=== PATIENT | male | born 1975 | race African-American/Black ===

== ENCOUNTER 2024-06-11 19:43 | Emergency (ER) | payer SELFPAY ==
[2024-06-11 22:50] LABS: Specific Gravity > 1.030 (1.005-1.030); Sqamous Epithelial None Seen /HPF (None Seen); Urine Bacteria <20 /HPF (<20); Urine Bilirubin NEGATIVE (Negative); Urine Blood 3+ (OVER) (Negative); Urine Clarity Extremely Turbid (Clear); Urine Color Dark-Brown (Yellow); Urine Culture Reflex Order NOT NEEDED; Urine Glucose NEGATIVE (Negative); Urine Ketones NEGATIVE (Negative); Urine Micro Reflex YN NO BILL MICROSCOPIC; Urine Mucus 4+ /HPF (None Seen); Urine Nitrite NEGATIVE (Negative); Urine Protein 2+ (Negative); Urine RBC >50 /HPF (None Seen); Urine Urobilinogen Normal (Normal); Urine WBC None Seen /HPF (<5); Urine pH 5.5 (5.0-7.0)
[2024-06-12 00:29] LABS: Absolute Eosinophils 0.1 K/uL (0-0.5); Absolute Monocytes 0.5 K/uL (0.1-1.3); Absolute Neutrophil 2.8 K/uL (1.8-8.0); Basophils % 0.6 % (0-1.3); Eosinophils % 2.6 % (0-4.4); Hematocrit 44.3 % (39.6-49.0); Hemoglobin 14.8 g/dL (13.6-17.9); Lymphocytes % 36.1 % (15.3-44.8); MCH 32.5 pg (27.0-35.0); MCHC 33.4 g/dL (32.0-36.0); MCV 97.2 fL (80-100); MPV 8.8 fL (7.6-11.3); Monocytes % 9.6 % (3.3-12.3); Neutrophils % 51.1 % (41.7-73.7); Nucleated Red Blood Cells % 0.1 % (0-0); Platelets 152 thou/uL (152-406); RBC Red Blood Cell Count 4.56 M/uL (4.33-5.43); Red Cell Distribution Width 13.1 % (12.1-15.2)
[2024-06-12 00:31] LABS: Albumin 3.8 g/dL (3.4-5.0); Anion Gap 5.3 mEq/L (5.0-15.0); Bilirubin Total 0.6 mg/dL (0.2-1.0); Potassium 4.3 mEq/L (3.5-5.1); Protein, Total 7.8 g/dL (6.4-8.2)
[2024-06-12 00:36] LABS: PT Prothrombin Time 11.7 SECONDS (9.4-12.5); PTT, Activated Partial Thromb 31.9 SECONDS (24.3-36.9); Protime INR 1.05
[2024-06-12] MEDS ORDERED: NA CHLORIDE 0.9% 1,000 ML ONE (00:41)
--- NOTE | 2024-06-12 01:26 | EDPHYS ---
Physician Documentation [facility] Name: Silvestre Akhtar Age: 48 yrs Sex: Male : 1975 Arrival Date: 06/11/2024 Time: 19:43 Bed 12 Private MD: ED Physician Pablo Salazar HPI: 06/11 22:32 This 48 yrs old Black Male presents to ER via Ambulatory with complaints of Urinary sb4 Problem. 22:32 patient states his urine has been dark/bloody over the past few days. he denies any sb4 associated symptoms- no dysuria, flank pain, fever, abdominal pain. states it will occasionally clear up, but then come right back. he does not smoke, is not on blood thinners, does not take any daily medications. Historical: - Allergies: 19:57 No Known Allergies; nj1 - PMHx: 19:57 Hypertensive disorder; nj1 - PSHx: 19:57 None; nj1 - Immunization history:: Client reports receiving the 2nd dose of the Covid vaccine. - Infectious Disease History:: Denies. - Social history:: Smoking status: Patient denies any tobacco usage or history of. ROS: 22:32 Constitutional: Negative for fever, chills, and weight loss, sb4 22:32 : Positive for hematuria, 22:32 All other systems are negative, Exam: 22:32 Constitutional: This is a well developed, well nourished patient who is awake, alert, sb4 and in no acute distress. Head/Face: Normocephalic, atraumatic. Eyes: Extra-ocular motions intact. Periorbital areas with no swelling, redness, or edema. ENT: Mucous membranes moist. Cardiovascular: Regular rate and rhythm with a normal S1 and S2. Respiratory: Lungs have equal breath sounds bilaterally, clear to auscultation and percussion. No rales, rhonchi or wheezes noted. No increased work of breathing, no retractions or nasal flaring. Abdomen/GI: Soft, non-tender, no distension. Skin: Warm, dry with normal turgor. Normal color with no rashes, no lesions, and no evidence of cellulitis. MS/ Extremity: Pulses equal, no cyanosis. Neurovascular intact. Full, normal range of motion. Vital Signs: 19:55 BP 183 / 107; Pulse 80; Resp 18; Temp 98.6(O); Pulse Ox 98% on R/A; Weight 111.13 kg; nj1 Height 5 ft. 9 in. ; 06/12 01:00 BP 186 / 118; Pulse 60; Resp 16; Pulse Ox 100% on R/A; jb4 06/11 19:55 Body Mass Index 36.18 (111.13 kg, 175.26 cm) nj1 MDM: 06/11 19:54 Patient medically screened. sb4 06/12 01:25 Data reviewed: vital signs, nurses notes, lab test result(s), radiologic studies, and sb4 as a result, I will discharge patient. Counseling: I had a detailed discussion with the patient and/or guardian regarding the historical points, exam findings, and any diagnostic results supporting the discharge/admit diagnosis, lab results, radiology results, the need for outpatient follow up, a urologist, to return to the emergency department if symptoms worsen or persist or if there are any questions or concerns that arise at home. 06/11 19:58 Order name: UAM; Complete Time: 22:51 sb4 06/11 22:52 Order name: CBC with Diff; Complete Time: 00:35 sb4 06/11 22:52 Order name: CMP; Complete Time: 00:31 sb4 06/11 22:52 Order name: PT-INR; Complete Time: 00:40 sb4 06/11 22:52 Order name: Ptt, Activated; Complete Time: 00:40 sb4 06/11 23:13 Order name: CK; Complete Time: 00:32 sb4 06/11 23:28 Order name: Abdomen EDMS 06/11 22:52 Order name: IV Saline Lock; Complete Time: 00:04 sb4 06/11 22:52 Order name: Labs collected and sent; Complete Time: 00:04 sb4 Administered Medications: 00:58 Drug: NS 0.9% IV 1000 ml IV at 1 bolus Per protocol; 1000 mL bolus Route: IV; Rate: 1 jb4 bolus; Site: right antecubital; 01:45 Drug: hydrALAZINE IVP 10 mg IVP once Route: IVP; Site: right antecubital; jb4 02:29 Drug: HydrALAZINE PO 50 mg PO once Route: PO; jb4 Disposition: 04:20 Co-signature as Attending Physician, Pablo Salazar MD I agree with the assessment sp4 and plan of care. I reviewed the patient's care provided by Advanced Practice Provider \T\ agree w/ the diagnosis \T\ care plan. I personally saw the pt \T\ performed a substantive portion of the visit, incldng all aspects of the (History/Exam/Medical Decision Making). Disposition Summary: 06/12/24 01:26 Discharge Ordered Notes: Location: Home sb4 Problem: new sb4 Symptoms: have improved sb4 Condition: Stable sb4 Diagnosis - Hematuria, unspecified sb4 Followup: sb4 - With: Truman Shaw MD - When: 1 week - Reason: Recheck today's complaints, Re-evaluation by your physician Discharge Instructions: - Discharge Summary Sheet sb4 - Hematuria, Adult sb4 - Rhabdomyolysis sb4 Forms: - Work release form jb4 - Patient Portal Instructions sb4 - Leadership Thank You Letter sb4 Signatures: Dispatcher [employer] EDParrish John, RN RN jb4 Pretty Wynn PA-C PA-C sb4 Pablo Salazar MD MD sp4 Beth Mckeon RN RN nj1 Corrections: (The following items were deleted from the chart) 06/11 23:28 22:53 Pelvis W/Cont+CT.RAD.BRZ ordered. EDKY EDMS
--- NOTE | 2024-06-12 01:26 | ER ---
Nurse's Notes [facility] Name: Silvestre Akhtar Age: 48 yrs Sex: Male : 1975 Arrival Date: 06/11/2024 Time: 19:43 Bed 12 Private MD: Diagnosis: Hematuria, unspecified Presentation: 06/11 19:55 Chief complaint: Patient states: Urine looks pink, unsure if its blood. First noticed 3 nj1 days ago, not better. Coronavirus screen: Vaccine status: Patient reports being unvaccinated. Ebola Screen: Patient denies travel to an Ebola-affected area in the 21 days before illness onset. Initial Sepsis Screen: Does the patient meet any 2 criteria? No. Patient's initial sepsis screen is negative. Does the patient have a suspected source of infection? No. Patient's initial sepsis screen is negative. Risk Assessment: Do you want to hurt yourself or someone else? Patient reports no desire to harm self or others. Onset of symptoms was June 09, 2024. 19:55 Method Of Arrival: Ambulatory [facility] 19:55 Acuity: CARA 3 nj1 Triage Assessment: 19:58 General: Appears in no apparent distress. comfortable, Behavior is calm, cooperative, nj1 appropriate for age. Pain: Denies pain. Neuro: Level of Consciousness is awake, alert, obeys commands, Oriented to person, place, time, situation. : Reports [place] urine. Historical: - Allergies: 19:57 No Known Allergies; nj1 - PMHx: 19:57 Hypertensive disorder; nj1 - PSHx: 19:57 None; nj1 - Immunization history:: Client reports receiving the 2nd dose of the Covid vaccine. - Infectious Disease History:: Denies. - Social history:: Smoking status: Patient denies any tobacco usage or history of. Screenin/04 02:46 [facility] ED Fall Risk Assessment (Adult) History of falling in the last 3 months, jb4 including since admission No falls in past 3 months (0 pts) Confusion or Disorientation No (0 pts) Intoxicated or Sedated No (0 pts) Impaired Gait No (0 pts) Mobility Assist Device Used No (0 pt) Altered Elimination No (0 pt) Score/Fall Risk Level 0 - 2 = Low Risk Oriented to surroundings, Maintained a safe environment. Abuse screen: Denies threats or abuse. Nutritional screening: No deficits noted. Tuberculosis screening: No symptoms or risk factors identified. Assessment: 06/11 22:30 Reassessment: Patient appears in no apparent distress at this time. Patient and/or jb4 family updated on plan of care and expected duration. Pain level reassessed. Patient is alert, oriented x 3, equal unlabored respirations, skin warm/dry/pink. 06/12 00:00 Reassessment: Patient appears in no apparent distress at this time. Patient and/or jb4 family updated on plan of care and expected duration. Pain level reassessed. Patient is alert, oriented x 3, equal unlabored respirations, skin warm/dry/pink. 01:56 Reassessment: d/c pending further evaluation after medication administration. jb4 02:46 Reassessment: Patient appears in no apparent distress at this time. Patient and/or jb4 family updated on plan of care and expected duration. Pain level reassessed. Patient is alert, oriented x 3, equal unlabored respirations, skin warm/dry/pink. Provider instructed this nurse to give 50mg of po hydralazine. Vital Signs: 06/11 19:55 BP 183 / 107; Pulse 80; Resp 18; Temp 98.6(O); Pulse Ox 98% on R/A; Weight 111.13 kg; ca1 Height 5 ft. 9 in. ; 06/12 01:00 BP 186 / 118; Pulse 60; Resp 16; Pulse Ox 100% on R/A; jb4 06/11 19:55 Body Mass Index 36.18 (111.13 kg, 175.26 cm) [facility] ED Course: 06/11 19:47 Patient arrived in ED. gm2 19:50 Pretty Wynn PA-C is PHCP. sb4 19:50 Pablo Salazar MD is Attending Physician. sb4 19:57 Triage completed. nj1 19:57 Arm band placed on right wrist. nj1 06/12 00:03 Inserted saline lock: 20 gauge in right antecubital area, using aseptic technique. af3 Blood collected. Flushed with 10 mL NS. 00:03 CK Sent. af3 00:04 Ptt, Activated Sent. af3 00:04 PT-INR Sent. af3 00:04 CBC with Diff Sent. af3 00:04 CMP Sent. af3 00:47 Abdomen In Process Unspecified. EDMS 01:26 Truman Shaw MD is Referral Physician. sb4 02:46 Patient has correct armband on for positive identification. Bed in low position. Call jb4 light in reach. Side rails up X 1. Provided Education on: discharge instructions.. 02:46 No provider procedures requiring assistance completed. IV discontinued, intact, jb4 bleeding controlled, No redness/swelling at site. Pressure dressing applied. Administered Medications: 00:58 Drug: NS 0.9% IV 1000 ml IV at 1 bolus Per protocol; 1000 mL bolus Route: IV; Rate: 1 jb4 bolus; Site: right antecubital; 01:45 Drug: hydrALAZINE IVP 10 mg IVP once Route: IVP; Site: right antecubital; jb4 02:29 Drug: HydrALAZINE PO 50 mg PO once Route: PO; jb4 Medication: 02:46 VIS not applicable for this client. jb4 Outcome: 01:26 Discharge ordered by MD. sb4 02:46 Discharged to home ambulatory, jb4 02:46 Condition: stable 02:46 Discharge instructions given to patient, Instructed on discharge instructions, follow up and referral plans. Demonstrated understanding of instructions, follow-up care, 02:52 Patient left the ED. jb4 Signatures: Dispatcher [employer] EDLA Parrish Esparza RN RN jb4 Pretty Wynn PA-C PA-C sb4 Beth Mckeon RN RN nj1 Shell Sanchez gm2 Anna Davies af3 Corrections: (The following items were deleted from the chart) 02:51 02:46 Reassessment: Patient appears in no apparent distress at this time. Patient jb4 and/or family updated on plan of care and expected duration. Pain level reassessed. Patient is alert, oriented x 3, equal unlabored respirations, skin warm/dry/pink. jb4
[2024-06-12] MEDS ORDERED: HYDRALAZINE HCL 20 MG/ML VIAL ONE (01:45)
[2024-06-12] MEDS ORDERED: HYDRALAZINE HCL 25 MG TABLET ONE (02:20)
[2024-06-12 08:07] VITALS: TEMP 98.6
[2024-06-12 08:12] VITALS: BP 186/118; O2SAT 100
--- NOTE | 2024-06-13 12:04 | RAD REPORT ---
EXAM DESCRIPTION: CT - Abdomen Pelvis W Contrast - 06/12/2024 6:45 am CLINICAL HISTORY: Facial pain. COMPARISON: None. TECHNIQUE: Axial CT of the facial bone obtained without contrast. Coronal and sagittal reformatted i mages available. This exam was performed according to our departmental dose-optimization program, [facility] ch includes automated exposure control, adjustment of the mA and/or kV according to patient size and/ or use of iterative reconstruction technique. FINDINGS: Orbits: Orbital floors and landry are intact. Intraorbital contents: The globes are intact. Extraocular muscles are symmetric. No intraconal fat st randing. Nasal bones: Intact. Maxilla: The maxillary hard palate is intact. Maxillary antral landry are intact. Sinuses: Mucosal thickening of the paranasal sinuses. Zygomatic processes: Intact Pterygoid plates: Intact Mandible: Intact. No mandibular condylar dislocation. Skull base/cervical spine: Visualized portions of the skull base and cervical spine are intact. Visua lized mastoid air cells are well aerated. Subcutaneous soft tissues: No abnormality noted in the subcutaneous soft tissues. Neck soft tissues: No definite abnormality involving the nasopharynx, oropharynx, or hypopharynx. Fos sa of [place] are clear. Parotid glands and submandibular glands are unremarkable. No cervical ly mphadenopathy. IMPRESSION: 1. No acute facial bone fracture identified. Electronically signed by: Rodriguez Rosa DO 06/12/2024 12:47 AM CDT 4ZDM Due to temporary technical issues with the PACS/Fluency reporting system, reports are being signed by the in house radiologist without review as a courtesy to ensure prompt reporting. The interpreting r adiologist is fully responsible for the content of the report.
== END 2024-06-12 02:52 | disposition home or self-care (01) ==
LOC: ER 19:43
DX: R31.9 Hematuria, unspecified (principal)
CPT/HCPCS: 36415; 74177; 80053; 81001; 82550; 85025; 85610; 85730; 96374; 99284; J0360; J7030; Q9967